=== PATIENT | female | born 1995 | race Hispanic/Latino ===

== ENCOUNTER 2019-05-11 22:17 | Emergency (ER) | payer SELFPAY ==
--- NOTE | 2019-05-11 23:18 | Emergency Department Report ---
ED Syncope HPI - General Chief Complaint: Syncope Stated Complaint: SYNCOPE Time Seen by Provider: 05/11/19 22:46 Source: patient - History of Present Illness Initial Comments: 23-year-old female presents to ED from [facility], currently admitted for an unspecified psychosis, following a syncopal episode. Patient states she was standing in line waiting on her medications to be given when she began to feel lightheaded and then proceeded to pass out. Patient denies any chest pain, shortness of breath, vomiting, diarrhea, abdominal pain prior to syncopal episode. She currently denies headache. Patient currently has Abilify, Prazosin, Lexapro, Vistaril, trazodone, Klonopin on her [facility]. patient reports one previous syncopal episode and she was in high school, states it was attributed to dehydration at that time. Timing/Prior Episodes: single episode today Precipitating Factors: Positive: lightheadedness Context: standing Loss of Consciousness: brief (seconds) Current Symptoms: back to normal. denies: chest pain, dizziness, headache - Related Data Allergies/Adverse Reactions: Allergies No Known Allergies Allergy (Unverified 05/11/19 22:39) ED Review of Systems ROS: Stated complaint: SYNCOPE Other details as noted in HPI Comment: All other systems reviewed and negative Constitutional: denies: chills, fever Respiratory: denies: shortness of breath Cardiovascular: denies: chest pain, palpitations Gastrointestinal: denies: abdominal pain, vomiting, diarrhea Neurological: denies: headache ED Past Medical Hx - Past Medical History Hx Psychiatric Treatment: Yes (Depression) - Surgical History Past Surgical History?: No - Social History Smoking Status: Never Smoker Substance Use Type: None ED Physical Exam - General Limitations: No Limitations General appearance: alert, in no apparent distress - Head Head exam: Present: atraumatic, normocephalic - Eye Eye exam: Present: normal appearance, PERRL, EOMI - ENT ENT exam: Present: mucous membranes moist - Neck Neck exam: Present: normal inspection - Respiratory Respiratory exam: Present: normal lung sounds bilaterally. Absent: respiratory distress - Cardiovascular Cardiovascular Exam: Present: normal rhythm, bradycardia - GI/Abdominal GI/Abdominal exam: Present: soft. Absent: distended, tenderness - Extremities Exam Extremities exam: Present: normal inspection - Neurological Exam Neurological exam: Present: alert, oriented X3, CN II-XII intact. Absent: motor sensory deficit - Psychiatric Psychiatric exam: Present: flat affect - Skin Skin exam: Present: warm, dry, intact, normal color ED Course Vital Signs 05/11/19 05/11/19 05/12/19 22:40 22:42 00:50 Temperature 98.5 F Pulse Rate 51 L 56 L Respiratory 16 16 16 Rate Blood Pressure 108/63 Blood Pressure 106/67 [Left] O2 Sat by Pulse 98 96 Oximetry 05/12/19 01:52 Temperature Pulse Rate 58 L Respiratory 16 Rate Blood Pressure Blood Pressure 101/57 [Left] O2 Sat by Pulse 99 Oximetry ED Medical Decision Making - Lab Data Result diagrams: 05/11/19 23:53 05/11/19 23:53 - EKG Data -: EKG Interpreted by Me EKG shows normal: sinus rhythm, axis, intervals, QRS complexes, ST-T waves Rate: bradycardia (rate 54) - EKG Data Interpretation: no acute changes - Radiology Data Radiology results: report reviewed, image reviewed - Medical Decision Making Pt reports the abilify and trazadone are new. States she was taking prazosin prior to her psychiatric admission. This medication may cause syncope and orthostatic hypotension. May be of benefit to hold this medication. Workup is unremarkable. BP was on the lower side, but pt not tachycardic. IV fluids given. Pt feeling much better now. Ambulated around ED w/o difficulty. Will discharge at this time. Outpt f/u advised. Critical care attestation.: If time is entered above; I have spent that time in minutes in the direct care of this critically ill patient, excluding procedure time. ED Disposition Clinical Impression: Syncope Disposition: -01 TO HOME OR SELFCARE Is pt being admited?: No Condition: Stable Instructions: Syncope (ED) Additional Instructions: It may be of benefit to hold patient's prazosin, as this may cause syncope and orthostatic hypotension. Referrals: PRIMARY CARE, [Referring] - 3-5 Days [facility] [Provider Group] - 3-5 Days Time of Disposition: 02:03
[2019-05-11] MEDS ORDERED: SODIUM CHLORIDE 0.9% 1000 ML 1,000 ML IV ONE (23:19)
--- NOTE | 2019-05-11 23:49 | Cat Scan Report ---
CT HEAD WITHOUT CONTRAST INDICATION: MAIN: syncope, AMS. TECHNIQUE: All CT scans at this location are performed using CT dose reduction for ALARA by means of automated e xposure control. COMPARISON: None available. FINDINGS: HEMORRHAGE: None. EXTRA-AXIAL SPACES: Normal in size and morphology for the patient's age. VENTRICULAR SYSTEM: Normal in size and morphology for the patient's age. BRAIN PARENCHYMA: No acute findings. MIDLINE SHIFT OR HERNIATION: None. ORBITS: Normal as visualized. SOFT TISSUES OF HEAD: Normal. CALVARIUM: Normal. VISUALIZED PARANASAL SINUSES AND MASTOID AIR CELLS: Clear. ADDITIONAL FINDINGS: None. IMPRESSION: 1. No acute intracranial abnormality. Signer Name: Silvano Espinoza MD Signed: 05/11/2019 11:44 PM Workstation Name: [email or web address]
[2019-05-11 23:53] LABS: Bacteria,Urine 1+ /HPF (Negative); Bilirubin,Urine NEG (Negative); Blood,Urine NEG (Negative); Color,Urine Yellow (Yellow); Mucus,Urine FEW /HPF; Protein,Urine <15 mg/dL mg/dL (Negative); Urobilinogen,Urine < 2.0 mg/dL (<2.0)
[2019-05-12 00:33] LABS: Basophils % (Auto) 0.4 % (0.0-1.8); Eosinophils # (Auto) 0.2 K/mm3 (0.0-0.4); Eosinophils % (Auto) 2.4 % (0.0-4.3); Hematocrit 35.2 % (30.3-42.9); Hemoglobin 12.1 gm/dl (10.1-14.3); Lymphocytes # (Auto) 1.8 K/mm3 (1.2-5.4); Lymphocytes % (Auto) 19.7 % (13.4-35.0); Mean Corpuscular HGB Conc 35 % (30-34); Mean Corpuscular Volume 88 fl (79-97); Monocytes # (Auto) 0.5 K/mm3 (0.0-0.8); Monocytes % (Auto) 5.7 % (0.0-7.3); Platelet Count 205 K/mm3 (140-440); Red Cell Distribution Width 12.9 % (13.2-15.2)
[2019-05-12 00:52] LABS: BUN/Creatinine Ratio 26; Blood Urea Nitrogen 13 mg/dL (7-17); Calcium 8.9 mg/dL (8.4-10.2); Hemolysis Index 27
--- NOTE | 2019-05-12 01:39 | XRay Report ---
CHEST 1 VIEW INDICATION: syncope. COMPARISON: None. FINDINGS: Support devices: None. Heart: Normal. Lungs/Pleura: No acute pulmonary or pleural findings. IMPRESSION: 1. No acute findings. Signer Name: Silvano Espinoza MD Signed: 05/12/2019 1:34 AM Workstation Name: [id number]
[2019-05-12 01:53] VITALS: BP 101/57
== END 2019-05-12 07:11 | disposition home or self-care (01) ==
LOC: EDBD → ED 22:17
DX: R55 Syncope and collapse (principal); R42 Dizziness and giddiness; F32.9 Major depressive disorder, single episode, unspecified
CPT/HCPCS: 36415; 70450; 71045; 80048; 81001; 84484; 84703; 85025; 93005; 93010; 96360; 99285; J7030